=== PATIENT | male | born 1980 | race Caucasian/White ===

== ENCOUNTER 2021-02-09 01:58 | Inpatient (IN) | payer BC ==
[~2021-02-09] VITALS: Ht 182.9 cm; Wt 77.2 kg
[2021-02-09] VITALS (7 sets, daily range): BP systolic 113–127; BP diastolic 58–80
[2021-02-09 03:05] LABS: BASOPHILS % (AUTO) 0.5 % (0-1); EOSINOPHILS # (AUTO) 0.2 X10'3 (0-0.9); EOSINOPHILS % (AUTO) 2.7 % (0-6); HEMATOCRIT 43.6 % (42.0-52.0); HEMOGLOBIN 15.3 g/dl (14.0-17.9); LYMPHOCYTES # (AUTO) 2.8 X10'3 (1.1-4.8); LYMPHOCYTES % (AUTO) 45.4 % (21-51); MEAN CORPUSCULAR HEMOGLOBIN 29.5 PG (27.0-31.0); MEAN CORPUSCULAR HGB CONC 35.2 g/dL (33.0-36.5); MEAN CORPUSCULAR VOLUME 83.9 FL (78-98); MEAN PLATELET VOLUME 7.2 FL (7.4-10.4); MONOCYTES # (AUTO) 0.4 X10'3 (0-0.9); MONOCYTES % (AUTO) 6.4 % (2-12); NEUTROPHILS # (AUTO) 2.7 X10'3 (1.8-7.7); PLATELET COUNT 180 X10'3 (140-440); RED BLOOD COUNT 5.19 X10'6 (4.70-6.10); RED CELL DISTRIBUTION WIDTH 13.2 % (11.5-14.5); WHITE BLOOD COUNT 6.1 X10'3 (4.5-11.0)
[2021-02-09 03:20] LABS: ALANINE AMINOTRANSFERASE 37 U/L (12-78); ALBUMIN 3.9 G/DL (3.4-5.0); ALBUMIN/GLOBULIN RATIO 1.2 (1.1-1.5); ALKALINE PHOSPHATASE 79 IU/L (46-116); ANION GAP 5 (8-16); ASPARTATE AMINO TRANSFERASE 24 U/L (10-37); BILIRUBIN,TOTAL 0.6 MG/DL (0.1-1.0); BLOOD UREA NITROGEN 17 MG/DL (7-18); BUN/CREATININE RATIO 15.2 (5.4-32.0); CALCIUM 8.8 MG/DL (8.5-10.1); CHLORIDE 106 MMOL/L (99-107); CREATININE 1.12 MG/DL (0.60-1.10); GLUCOSE 96 MG/DL (70-104); POTASSIUM 3.7 MMOL/L (3.5-5.1); SODIUM 142 MMOL/L (135-145); TOTAL CARBON DIOXIDE 30.6 MMOL/L (24-32); TOTAL PROTEIN 7.2 G/DL (6.4-8.2); eGFR 72 ML/MIN
[2021-02-09] MEDS ORDERED: magnesium 4gm in 100ml NS 100 ML IV PRN (06:15)
[2021-02-09] MEDS ORDERED: magnesium 2GM in 50ml NS 50 ML IV PRN (06:15)
[2021-02-09] MEDS ORDERED: potassium Cl 20 mEq SR tablet PO PRN ×2 (06:15)
[2021-02-09] MEDS ORDERED: morphine 2 MG/ML inj. syringe IV PRN (06:15)
[2021-02-09] MEDS ORDERED: magnesium Cl slow-release 64mg tablet PO PRN (06:15)
[2021-02-09] MEDS ORDERED: ondansetron/PF 4mg/2ml inj IV PRN (06:15)
[2021-02-09] MEDS ORDERED: potassium Cl 40MEQ/1/2NS 520ml 520 ML IV PRN ×2 (06:15)
[2021-02-09] MEDS ORDERED: normal saline 1000ml 1,000 ML IV SCH (06:15)
[2021-02-09] MEDS ORDERED: metoprolol tartrate 1mg/ml inj IV PRN ×2 (06:20→07:45)
[2021-02-09] MEDS ORDERED: regadenoson 0.4mg/5ml syringe IV PRN (06:20)
[2021-02-09] MEDS ORDERED: aminophylline 250mg/10ml inj. IV PRN ×2 (06:20→07:45)
[2021-02-09] MEDS ORDERED: nitroGLYCERIN 0.4mg SUBLingual tab SL PRN ×2 (06:20→07:45)
[2021-02-09 06:49] LABS: D-DIMER < 0.19 MG/L FEU (0-0.50)
[2021-02-09] MEDS ORDERED: regadenoson 0.4mg/5ml syringe IV ONE (07:45)
[2021-02-09] MEDS ORDERED: K and/or MAG REPLACEMENT MC SCH (08:00)
[2021-02-09] MEDS ORDERED: PERFLUTREN PROTEIN-A MICROSPHR (Optison) 0.22 MG/ML 3ML VIAL IV ONE (08:00)
--- NOTE | 2021-02-09 13:32 | NUR ---
pt enjoying lunch tray
[2021-02-09] MEDS ORDERED: temazepam 15mg capsule PO PRN (21:00)
== END 2021-02-10 15:12 | disposition home or self-care (01) | DRG 313 ==
LOC: ER 01:59 → ED HOLD 06:18
PROVIDERS: ADMIT Internal Medicine; ATTEND Internal Medicine
PROC: 4A02XM4 Measurement of Cardiac Total Activity, External Approach (ICD-10-PCS; principal; 2021-02-09)
PROC: 3E073KZ Introduction of Other Diagnostic Substance into Coronary Artery, Percutaneous Approach (ICD-10-PCS; 2021-02-09)
DX: R07.89 Other chest pain (principal)
CPT/HCPCS: 36415; 71045; 78452; 80053; 83880; 84484; 85025; 85379; 87081; 93005; 93017; 93306; 93971; 99285; A9500; G0378; J2785